=== PATIENT | male | born 1990 | race Asian ===

== ENCOUNTER 2019-07-01 20:06 | Emergency (ER) | payer BC ==
[~2019-07-01] VITALS: Ht 162.6 cm; Wt 72.7 kg
[2019-07-01 20:08] VITALS: BP 162/90
--- NOTE | 2019-07-01 20:32 | PHYS DOC ---
Past Medical History Past Medical History: No Pertinent History Past Surgical History: No Surgical History Smoking Status: Unknown if ever smoked Alcohol Use: None Drug Use: None Adult General Chief Complaint Chief Complaint: ALCOHOL INTOXICATION HPI HPI Patient is a 28 year old male who presents with altered mental status of being found down in his car. The patient smells of alcohol. He was brought to the emergency Department via EMS. Unable to obtain additional information due to patient clinical condition. Review of Systems Review of Systems Unable to obtain due to clinical status. Current Medications Current Medications Current Medications Medications (Trade) Dose Ordered Sig/Joellen Start Time Stop Time Status Last Admin Dose Admin Folic Acid (Folic Acid) 1 mg 1X ONCE 07/01/19 21:00 07/01/19 21:01 DC 07/01/19 21:03 1 MG Ondansetron HCl (Zofran) 4 mg 1X ONCE 07/01/19 21:00 07/01/19 21:01 DC 07/01/19 21:03 4 MG Sodium Chloride 1,000 ml @ 1,000 mls/hr 1X ONCE 07/01/19 21:00 07/01/19 21:59 07/01/19 21:00 1,000 MLS/HR Thiamine HCl 100 mg/Dextrose 51 ml @ 102 mls/hr 1X ONCE 07/01/19 21:00 07/01/19 21:29 DC 07/01/19 21:00 102 MLS/HR Allergies Allergies Allergies Coded Allergies Type Severity Reaction Last Updated Verified No Known Drug Allergies 10/21/17 No Physical Exam Physical Exam Constitutional: Well developed, well nourished, no acute distress, smells of ETOH. HENT: Normocephalic, atraumatic, bilateral external ears normal, oropharynx moist, no oral exudates, nose normal. [] Eyes: PERRLA, EOMI, conjunctiva normal, no discharge. [] Neck: Normal range of motion, no tenderness, supple, no stridor. [] Cardiovascular:Heart rate regular rhythm, no murmur [] Lungs & Thorax: Bilateral breath sounds clear to auscultation [] Abdomen: Bowel sounds normal, soft, no tenderness, no masses, no pulsatile masses. [] Skin: Warm, dry, no erythema, no rash. [] Back: No tenderness, no CVA tenderness. [] Extremities: No tenderness, no cyanosis, no clubbing, ROM intact, no edema. [] Neurologic: Alert and oriented X 1, GCS of 14, slurred speech. Psychologic: Affect normal, judgement normal, mood normal. [] Current Patient Data Vital Signs Vital Signs Date Time Temp Pulse Resp B/P (MAP) Pulse Ox O2 Delivery O2 Flow Rate FiO2 07/01/19 20:08 98.2 108 18 162/90 (114) 94 Room Air 98.2 Lab Values Laboratory Tests Test 07/01/19 20:13 07/01/19 20:15 Glucose (Fingerstick) 271 mg/dL (70-99) H White Blood Count 6.0 x10^3/uL (4.0-11.0) Red Blood Count 5.56 x10^6/uL (4.30-5.70) Hemoglobin 15.8 g/dL (13.0-17.5) Hematocrit 46.6 % (39.0-53.0) Mean Corpuscular Volume 84 fL (79-100) Mean Corpuscular Hemoglobin 28 pg (25-35) Mean Corpuscular Hemoglobin Concent 34 g/dL (31-37) Red Cell Distribution Width 13.8 % (11.5-14.5) Platelet Count 306 x10^3/uL (140-400) Neutrophils (%) (Auto) 38 % (31-73) Lymphocytes (%) (Auto) 53 % (24-48) H Monocytes (%) (Auto) 7 % (0-9) Eosinophils (%) (Auto) 2 % (0-3) Basophils (%) (Auto) 1 % (0-3) Neutrophils # (Auto) 2.3 x10^3/uL (1.8-7.7) Lymphocytes # (Auto) 3.1 x10^3/uL (1.0-4.8) Monocytes # (Auto) 0.4 x10^3/uL (0.0-1.1) Eosinophils # (Auto) 0.1 x10^3/uL (0.0-0.7) Basophils # (Auto) 0.0 x10^3/uL (0.0-0.2) Sodium Level 143 mmol/L (136-145) Potassium Level 3.6 mmol/L (3.5-5.1) Chloride Level 105 mmol/L (98-107) Carbon Dioxide Level 24 mmol/L (21-32) Anion Gap 14 (6-14) Blood Urea Nitrogen 7 mg/dL (8-26) L Creatinine 1.1 mg/dL (0.7-1.3) Estimated GFR (Cockcroft-Gault) 79.1 BUN/Creatinine Ratio 6 (6-20) Glucose Level 241 mg/dL (70-99) H Calcium Level 8.3 mg/dL (8.5-10.1) L Total Bilirubin 0.1 mg/dL (0.2-1.0) L Aspartate Amino Transferase (AST) 29 U/L (15-37) Alanine Aminotransferase (ALT) 72 U/L (16-63) H Alkaline Phosphatase 84 U/L (46-116) Total Protein 8.0 g/dL (6.4-8.2) Albumin 4.0 g/dL (3.4-5.0) Albumin/Globulin Ratio 1.0 (1.0-1.7) Ethyl Alcohol Level 319 mg/dL (0-10) H Laboratory Tests 07/01/19 20:15 Laboratory Tests 07/01/19 20:15 EKG EKG [] Radiology/Procedures Radiology/Procedures [][facility] [address] [place] [address] IMAGING REPORT Signed PATIENT: ROSEMARY RED ACCOUNT: [id number] : 1990 LOCATION: ER AGE: 28 SEX: M EXAM STATUS: PRE ER ORD. PHYSICIAN: ERICA CHILD APRN REASON: ams PROCEDURE: CT HEAD WO CONTRAST EXAM: CT HEAD WITHOUT CONTRAST. HISTORY: Altered mental status. TECHNIQUE: Computed tomography of the head was performed without intravenous contrast. One or more of the following individualized dose reduction techniques were utilized for this examination: 1. Automated exposure control. 2. Adjustment of the mA and/or kV according to patient size. 3. Use of iterative reconstruction technique. COMPARISON: None. FINDINGS: There is no intracranial hemorrhage. Porter-white differentiation is preserved. The ventricles are normal in size and position. The visualized paranasal sinuses appear clear. The orbits are unremarkable. The temporal bones are unremarkable. The calvarium reveals no suspicious lesions. Correlate for contusion or laceration along the right parietal scalp. IMPRESSION: 1. No acute intracranial findings. 2. Correlate for a right parietal scalp contusion or laceration. Electronically signed by: Usama Hopkins MD (07/01/2019 9:03 PM) [id number] DICTATED and SIGNED BY: MARIE HOPKINS MD DATE: 07/01/192102 Course & Med Decision Making Course & Med Decision Making Pertinent Labs and Imaging studies reviewed. (See chart for details) The patient appears to be intoxicated. Will get labs, CT head (due to AMS), and Tox screen. Will give supportive care. Alcohol is 319. Patient pulled out his IV and is wanting to leave. Sister is at bedside and is willing to take him home. Nursing had patient sign AMA form. Patient was advised of the risks of leaving including . Patient is able to walk, talk, and ambulate. Patient is GCS of 15 upon leaving. Dragon Disclaimer Dragon Disclaimer This electronic medical record was generated, in whole or in part, using a voice recognition dictation system. Departure Departure Impression: Primary Impression: Left against medical advice Additional Impression: Alcohol intoxication Disposition: 07 AGAINST MEDICAL ADVICE Condition: STABLE Referrals: NO PCP (PCP) Scripts No Active Prescriptions or Reported Meds Problem Qualifiers ERICA CHILD APRN Jul 01, 2019 20:32
[2019-07-01 20:36] LABS: BASO % 1 % (0-3); EOS # 0.1 x10^3/uL (0.0-0.7); EOS % 2 % (0-3); HEMATOCRIT 46.6 % (39.0-53.0); HEMOGLOBIN 15.8 g/dL (13.0-17.5); LYMPH # 3.1 x10^3/uL (1.0-4.8); LYMPH % 53 % (24-48); MEAN CORPUSCULAR HEMOGLOBIN 28 pg (25-35); MEAN CORPUSCULAR HGB CONC 34 g/dL (31-37); MEAN CORPUSCULAR VOLUME 84 fL (79-100); MONO # 0.4 x10^3/uL (0.0-1.1); MONO % 7 % (0-9); NEUT # 2.3 x10^3/uL (1.8-7.7); NEUT % 38 % (31-73); PLATELET COUNT 306 x10^3/uL (140-400); RED BLOOD COUNT 5.56 x10^6/uL (4.30-5.70); RED CELL DISTRIBUTION WIDTH 13.8 % (11.5-14.5)
--- NOTE | 2019-07-01 20:45 | EKG ---
[facility] [address] [place] [address] Test Date: 2019-07-01 Test Time: 20:16:27 Pat Name: ROSEMARY RED Department: Room: Gender: M Data Integrity Consultant: : 1990 Requested By: ERICA CHILD Order Number: [id number] Reading MD: Measurements Intervals [place] Rate: 102 P: 56 AL: 142 QRS: 23 QRSD: 106 T: 15 QT: 336 QTc: 442 Interpretive Statements SINUS TACHYCARDIA QRS(T) CONTOUR ABNORMALITY CONSIDER ANTEROSEPTAL MYOCARDIAL DAMAGE CONSIDER INFERIOR MYOCARDIAL DAMAGE POSSIBLY ABNORMAL ECG RI6.01 No previous ECG available for comparison
[2019-07-01 20:52] LABS: CALCIUM 8.3 mg/dL (8.5-10.1); CREATININE 1.1 mg/dL (0.7-1.3); GFR 79.1; POTASSIUM 3.6 mmol/L (3.5-5.1)
[2019-07-01 20:58] LABS: TOTAL BILIRUBIN 0.1 mg/dL (0.2-1.0)
[2019-07-01] MEDS ORDERED: ONDANSETRON PF 4 MG/2 ML VIAL. IV ONE (21:00)
[2019-07-01] MEDS ORDERED: THIAMINE INJ 100 MG in IV DEXTROSE 5% 50 ML IV ONE (21:00)
[2019-07-01] MEDS ORDERED: FOLIC ACID 1 MG TABLET. PO ONE (21:00)
[2019-07-01] MEDS ORDERED: IV NORMAL SALINE 1000ML BAG 1,000 ML IV ONE (21:00)
--- NOTE | 2019-07-01 21:06 | RAD ---
EXAM: CT HEAD WITHOUT CONTRAST. HISTORY: Altered mental status. TECHNIQUE: Computed tomography of the head was performed without intravenous contrast. One or more of the following individualized dose reduction techniques were utilized for this examination: 1. Automated exposure control. 2. Adjustment of the mA and/or kV according to patient size. 3. Use of iterative reconstruction technique. COMPARISON: None. FINDINGS: There is no intracranial hemorrhage. Porter-white differentiation is preserved. The ventricles are normal in size and position. The visualized paranasal sinuses appear clear. The orbits are unremarkable. The temporal bones are unremarkable. The calvarium reveals no suspicious lesions. Correlate for contusion or laceration along the right parietal scalp. IMPRESSION: 1. No acute intracranial findings. 2. Correlate for a right parietal scalp contusion or laceration. Electronically signed by: Usama Hopkins MD (07/01/2019 9:03 PM) [id number]
== END 2019-07-01 21:50 | disposition left against medical advice (07) ==
LOC: ER 20:06
DX: F10.129 Alcohol abuse with intoxication, unspecified (principal); R41.82 Altered mental status, unspecified
CPT/HCPCS: 36415; 70450; 80053; 82962; 85025; 93005; 96365; 96375; 99285; G0480; J2405; J7030

== ENCOUNTER 2019-09-25 18:33 | Emergency (ER) | payer BC ==
[~2019-09-25] VITALS: Ht 165.1 cm; Wt 81.8 kg
--- NOTE | 2019-09-25 19:38 | RAD ---
CHEST AP ONLY Clinical indications: Cough. COMPARISON: April 12, 2015. Findings: Decreased inspiration is seen. Mild peribronchial thickening is seen. No lung consolidation or lung mass or pleural effusion or pneumothorax is seen. The heart size, pulmonary vasculature, mediastinum and both isidra are unremarkable. Impression: Acute mild bilateral bronchitis. No consolidative pneumonia. Decreased inspiration. Electronically signed by: Forrest Linn MD (09/25/2019 7:36 PM) [facility] [place]
--- NOTE | 2019-09-25 19:51 | PHYS DOC ---
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 Denies cough. Denies trauma. Denies leg swelling and calf tenderness. Denies fever/chills. Reports drinking "1 beer" p rior to arrival. Review of Systems: Review of Systems: Constitutional: Denies fever or chills Eyes: Denies change in visual acuity, redness, or eye pain HENT: Denies nasal congestion or sore throat Respiratory: Denies cough; repots shortness of breath Cardiovascular: Reports chest pain; denies palpitations GI: Denies abdominal pain, nausea, vomiting, or diarrhea : Denies dysuria or hematuria Musculoskeletal: Denies back pain or joint pain Integument: Denies rash or skin lesions Neurologic: Denies headache, focal weakness or sensory changes Complete systems were reviewed and found to be within normal limits, except as documented in this note. Heart Score: HEART Score for Chest Pain: HEART Score for Chest Pain Response (Comments) Value History Slighlty/Non-Suspicious 0 ECG Normal 0 Age < 45 0 Risk Factors 1 or 2 Risk Factors 1 Troponin < Normal Limit 0 Total 1 Risk Factors: Risk Factors: DM, Current or recent (<one month) smoker, HTN, HLP, family history of CAD, obesity. Risk Scores: Score 0 - 3: 2.5% MACE over next 6 weeks - Discharge Home Score 4 - 6: 20.3% MACE over next 6 weeks - Admit for Clinical Observation Score 7 - 10: 72.7% MACE over next 6 weeks - Early Invasive Strategies Allergies: Allergies: Allergies Coded Allergies Type Severity Reaction Last Updated Verified No Known Drug Allergies 10/21/17 No Physical Exam: PE: Constitutional: Well developed, well nourished, no acute distress, non-toxic appearance HENT: Normocephalic, atraumatic Eyes: Conjunctiva normal, no discharge, horizontal nystagmus noted Neck: Normal range of motion, no tenderness, supple Cardiovascular: Heart rate normal and regular rhythm Lungs & Thorax: Bilateral breath sounds clear to auscultation, no respiratory distress Abdomen: Soft, no tenderness Skin: Warm, dry, no erythema, no rash Extremities: No tenderness, ROM intact, no edema Neurologic: Alert and oriented X 3, no focal deficits noted Psychologic: Affect normal, judgement normal Current Patient Data: Vital Signs: Vital Signs Date Time Temp Pulse Resp B/P (MAP) Pulse Ox O2 Delivery O2 Flow Rate FiO2 09/25/19 19:09 98.1 105 24 162/104 (123) 99 Room Air 98.1 EKG: EKG: @1934 Sinus tachycardia at 104bpm, NO ST elevation, QRS 110ms, QT/QTc 338/445ms Radiology/Procedures: Radiology/Procedures: PROCEDURE: CHEST AP ONLY CHEST AP ONLY Clinical indications: Cough. COMPARISON: April 12, 2015. Findings: Decreased inspiration is seen. Mild peribronchial thickening is seen. No lung consolidation or lung mass or pleural effusion or pneumothorax is seen. The heart size, pulmonary vasculature, mediastinum and both isidra are unremarkable. Impression: Acute mild bilateral bronchitis. No consolidative pneumonia. Decreased inspiration. Electronically signed by: Forrest Linn MD (09/25/2019 7:36 PM) [facility] [place] Course & Med Decision Making: Course & Med Decision Making Pertinent Labs and Imaging studies reviewed. (See chart for details) Patient presents with report of SOA and chest pain. EKG stable. Labs obtained and posted to chart. Troponin WNL. ETOH >300. CXR without acute process. Patient stable for discharge home with outpatient follow-up with PCP. Discussed findings and plan with patient, who acknowledges understanding and agreement. COVID-19 CRITERIA: The patient was evaluated during the global COVID-19 pandemic, and that diagnosis was suspected/considered upon their initial presentation. Their evaluation, treatment and testing was consistent with current guidelines for patients who present with complaints or symptoms that may be related to COVID-19. Dragon Disclaimer: Dragon Disclaimer: This electronic medical record was generated, in whole or in part, using a voice recognition dictation system. Departure Departure Impression: Primary Impression: Bronchitis Additional Impression: Alcohol abuse Disposition: 01 HOME, SELF-CARE Condition: STABLE Referrals: NO PCP (PCP) Patient Instructions: Acute Bronchitis, [id number], Alcohol and Drug Addiction, Finding Treatment, Alcohol, FAQs Additional Instructions: You may have COVID19. You did not meet criteria to be tested today in the Emergency Depatment. Patient can still have minor symptoms. The treatment is still the same. Please self quarantine. Scripts Prednisone (PREDNISONE) 20 Mg Tablet 2 TAB PO DAILY, #10 TAB Prov: ERICA LUJAN DO 09/25/19 Albuterol Sulfate (Proair Hfa) 8.5 Gm Hfa.aer.ad 2 PUFF IH PRN Q4-6HRS PRN for wheezing, #1 INHALER 0 Refills Prov: ERICA LUJAN DO 09/25/19 COVID-19 Assessment: COVID-19 Patient Risks: Age 65 or older: No Sign of co-morbidity: No Exp to person + for COVID: No Exp to PUI: No Travel from affected area: No Lower respiratory symptoms: No Fever: No PPE Use: Full PPE with N95 mask or PAPR: Yes ERICA LUJAN DO September 25, 2019 19:51
[2019-09-25] MEDS ORDERED: IV NORMAL SALINE 1000ML BAG 1,000 ML IV ONE (20:00)
[2019-09-25 20:44] LABS: BILIRUBIN,URINE NEGATIVE (NEG); CLARITY,URINE CLEAR; COLOR,URINE YELLOW; NITRITE,URINE NEGATIVE (NEG); PH,URINE 6.5 (<5.0-8.0); PROTEIN,URINE NEGATIVE (NEG-TRACE); UROBILINOGEN,URINE 0.2 mg/dL (0.2 mg/dL)
[2019-09-25 20:45] LABS: BASO # 0.1 x10^3/uL (0.0-0.2); BASO % 1 % (0-3); EOS # 0.2 x10^3/uL (0.0-0.7); EOS % 2 % (0-3); HEMATOCRIT 47.5 % (39.0-53.0); HEMOGLOBIN 16.1 g/dL (13.0-17.5); LYMPH # 4.8 x10^3/uL (1.0-4.8); LYMPH % 51 % (24-48); MEAN CORPUSCULAR HEMOGLOBIN 29 pg (25-35); MEAN CORPUSCULAR HGB CONC 34 g/dL (31-37); MEAN CORPUSCULAR VOLUME 85 fL (79-100); MONO # 1.1 x10^3/uL (0.0-1.1); MONO % 11 % (0-9); NEUT # 3.4 x10^3/uL (1.8-7.7); NEUT % 36 % (31-73); PLATELET COUNT 339 x10^3/uL (140-400); RED BLOOD COUNT 5.62 x10^6/uL (4.30-5.70); RED CELL DISTRIBUTION WIDTH 14.4 % (11.5-14.5); WHITE BLOOD COUNT 9.6 x10^3/uL (4.0-11.0)
[2019-09-25 20:49] LABS: BARBITURATES NEG (NEG); BENZODIAZEPINES NEG (NEG); CANNABINOIDS NEG (NEG); COCAINE NEG (NEG); METHADONE NEG (NEG); OPIATES NEG (NEG); PHENCYCLIDINE NEG (NEG)
[2019-09-25 20:50] LABS: AMPHETAMINE/METHAMPHETAMINE NEG (NEG)
[2019-09-25 20:53] LABS: PROTHROMBIN TIME PATIENT 12.6 SEC (11.7-14.0)
[2019-09-25 20:55] LABS: BACTERIA,URINE 0 /HPF (0-FEW); RBC,URINE 0 /HPF (0-2); WBC,URINE 0 /HPF (0-4)
[2019-09-25 21:05] LABS: CALCIUM 9.1 mg/dL (8.5-10.1); CREATININE 0.8 mg/dL (0.7-1.3); GFR 113.5; POTASSIUM 3.2 mmol/L (3.5-5.1)
[2019-09-25 21:11] LABS: ALBUMIN 4.2 g/dL (3.4-5.0); MAGNESIUM 2.1 mg/dL (1.8-2.4); TOTAL BILIRUBIN 0.2 mg/dL (0.2-1.0); TOTAL PROTEIN 8.6 g/dL (6.4-8.2)
[2019-09-25] MEDS ORDERED: ALBU2.5V8 IH (21:16)
[2019-09-25] MEDS ORDERED: PRED20TA PO (21:16)
[2019-09-25 21:30] VITALS: BP 133/81
--- NOTE | 2019-09-26 06:43 | EKG ---
[facility] [address] [place] [address] Test Date: 2019-09-25 Test Time: 19:34:41 Pat Name: ROSEMARY RED Department: Room: Gender: M Shank Breaker: : 1990 Requested By: ERICA LUJAN Order Number: [id number] Reading MD: Conrado Scott Measurements Intervals [place] Rate: 104 P: 50 FL: 122 QRS: 24 QRSD: 110 T: 5 QT: 338 QTc: 445 Interpretive Statements SINUS TACHYCARDIA Electronically Signed On 09-26-2019 8:44:12 CDT by Conrado Scott
== END 2019-09-25 21:37 | disposition home or self-care (01) ==
LOC: ER 18:33
DX: J40 Bronchitis, not specified as acute or chronic (principal); F10.10 Alcohol abuse, uncomplicated; F17.200 Nicotine dependence, unspecified, uncomplicated
CPT/HCPCS: 36415; 71045; 80053; 80307; 81001; 82553; 83690; 83735; 83880; 84484; 85025; 85610; 85730; 93005; 99285; G0480; J7030